=== PATIENT | male | born 2000 | race African-American/Black ===

== ENCOUNTER 2022-06-27 15:07 | Emergency (ER) | payer SELFPAY ==
[2022-06-27] MEDS ORDERED: IBUPROFEN 400 MG TAB ONE (16:01)
--- NOTE | 2022-06-27 16:24 | RAD REPORT ---
EXAM DESCRIPTION: RAD - Knee Left 3 View - 06/27/2022 4:15 pm CLINICAL HISTORY: PAIN COMPARISON: No comparisons FINDINGS: No fracture, dislocation or periosteal reaction.No joint effusion seen. No joint space sal rowing. No soft tissue abnormality. IMPRESSION: Negative left knee. Clinical concerns for internal derangement or occult bony injury could be further assessed with MR im aging.
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
[2022-06-27 18:46] VITALS: BP 135/82; TEMP 98.3; O2SAT 99
== END 2022-06-27 17:12 | disposition home or self-care (01) ==
LOC: ER 15:07
DX: M25.562 Pain in left knee (principal)
CPT/HCPCS: 99283